=== PATIENT | male | born 1965 | race Caucasian/White ===

== ENCOUNTER 2020-07-12 19:36 | Inpatient (IN) | payer OTHER ==
[~2020-07-12 19:36] MED LIST: Iopamidol-370 76% 500 ML 1 ML ONE
--- NOTE | 2020-07-12 20:09 | RAD ---
Exam: Chest one view HISTORY:Altered mental status Comparison: None FINDINGS: Cardiac silhouette: Normal Aorta: Unremarkable Pulmonary vessels: Normal Costophrenic angles: Clear LUNGS: Scattered interstitial opacities of the lung bases. Pneumothorax: None Osseous abnormalities: Possible remote posterior right sixth rib fracture. Right rib radiograph serie s may be beneficial. IMPRESSION: 1. Bibasilar interstitial opacities. Correlate for edema or infiltrate. Aspiration cannot be entirely excluded. 2. Right rib radiograph series to better evaluate the posterior right sixth rib.
--- NOTE | 2020-07-12 20:24 | CT ---
Exam: Head CT without contrast HISTORY: Dysarthria, ataxia and confusion. Altered mental status. Level 1 stroke COMPARISON: none FINDINGS: Hemorrhage: No intraparenchymal hemorrhage or extra-axial hematoma. Brain parenchyma: Cortical quigley-white matter differentiation is preserved. No mass effect or midline shift. Basilar cisterns are patent. Ventricular system: Ventricles and sulci are patent and symmetric. Calvarium: Intact. Sinuses and mastoid air cells: Adequate aeration. IMPRESSION: No acute intracranial process. Findings conveyed to Dr. Salazar 07/12/2020 8:21 PM Code CR
[2020-07-12 20:32] LABS: #Basophils 0.1 thou/uL (0.0-0.2); #Eosinphils 0.2 thou/uL (0.0-0.7); #Lymphocytes 1.7 thou/uL (1.20-3.40); #Monocytes 0.3 thou/uL (0.11-0.59); #Neutrophils 2.2 thou/uL (1.40-6.50); %Basophils 1.8 % (0.0-1.0); %Eosinophils 4.9 % (0.0-10.0); %Lymphocytes 37.3 % (21.0-51.0); %Monocytes 7.3 % (0.0-10.0); %Neutrophils 48.7 % (42.0-75.0); Hemoglobin 16.1 g/dL (14.0-18.0); Mean Corpuscular HGB CONC 33.1 g/dL (32.0-36.0); Mean Corpuscular Hemoglobin 33.4 pg (27.0-31.0); Mean Platelet Volume 7.6 fL (7.4-10.4); Platelet Count 260 thou/uL (130-400); RBC Distribution Width 11.6 % (11.5-14.5); White Blood Cell (WBC) Count 4.5 thou/uL (4.8-10.8)
--- NOTE | 2020-07-12 20:41 | CT ---
EXAM: CT ANGIOGRAM OF THE HEAD AND NECK INDICATION: Level 1 stroke. Dysarthria. Altered mental status. Alcohol consumption. COMPARISON: None TECHNIQUE: CT angiogram of the head and neck are performed in the axial plane. Three-dimensional refo rmatted images are submitted for interpretation. FINDINGS: CTA OF THE HEAD WITH AND WITHOUT CONTRAST: POSTCONTRAST CT OF BRAIN: Pathologic enhancement: No pathologic enhancement the brain. Postcontrast soft tissue neck CT: Aerodigestive tract:Aerodigestive tract is patent. No mucosal abnormality. Evaluation the oral cavity due to dental amalgam artifact. Sinuses: Adequate aeration. Orbits: Bilateral ocular lenses are appropriately located. Both globes are intact. Retrobulbar fat is preserved. Symmetric attenuation the optic nerves and ocular rectus muscles. Salivary glands:Fatty replacement of the parotid glands, symmetric. Symmetric attenuation of the subm andibular glands. Thyroid gland: Appropriate attenuation Lymph nodes: No evidence of lymphadenopathy by size criteria. Paraspinal muscles: Symmetric attenuation of the sternocleidomastoid muscles. Appropriate attenuation of the paraspinal muscles. Cervical spine:Vertebral body height is maintained. No fracture. Cervical fusion at C5-C6. Moderate t o severe degenerative disc disease at C3-C4, C4-C5 and C6-C7. There are varying degrees of central canal stenosis and foraminal narrowing due to degenerative change. Technique limits evaluation. Upper mediastinum and lung apices: Chronic changes of the lung parenchyma. CTA OF THE NECK WITH CONTRAST: Aorta: Appropriate enhancement and luminal diameter of the visualized aorta Right carotid artery: Appropriate enhancement and luminal diameter of the origin the right carotid ar suhail, innominate artery, common carotid artery, carotid bifurcation and internal carotid artery. No significant stenosis based upon NASCET criteria. Left carotid: Appropriate enhancement and luminal diameter the origin of the carotid artery, common c arotid artery, carotid bifurcation and internal carotid artery. No significant stenosis based upon NASCET criteria Subclavian arteries:Symmetric and patent Vertebral arteries:Patent throughout their course in the neck. Vertebral arteries are codominant. CTA OF THE BRAIN: Intracranial internal carotid arteries:Appropriate enhancement and luminal diameter Anterior circulation: Appropriate enhancement and luminal diameter of the A1 segments, A2 segments, M 1 segments and proximal MCA branches. No occlusion or high-grade stenosis. No aneurysm. Intracranial vertebral arteries: Patent. Posterior circulation: Both vertebral arteries supply normal caliber basilar artery. Left P1 segment has appropriate enhancement and luminal diameter. Right CAR SHAKEOUT OPERATOR has a origin. Appropriate enhancement and luminal diameter. IMPRESSION: 1. No hemodynamically significant stenosis, occlusion or aneurysmal formation. Results of study discussed with Dr. Salazar 07/12/2020 at 8:38 PM Code CR
[2020-07-12 20:50] LABS: Acetaminophen Less than 6.0 mcg/mL (10.0-30.0); Alcohol 182 mg/dL (Less than 10); Salicylate Less than 8.0 mg/dL (15.0-30.0)
[2020-07-12 20:51] LABS: INR-International Normal Ratio 0.9; PTT 24.7 sec (22.9-36.1); Prothrombin Time 12.1 sec (12.0-14.7)
--- NOTE | 2020-07-12 21:18 | CT ---
Exam: Head CT without contrast HISTORY: Worsening symptoms. Uncontrolled movement COMPARISON: 07/12/2020 8:18 PM FINDINGS: Hemorrhage: No intraparenchymal hemorrhage or extra-axial hematoma. Brain parenchyma: Cortical quigley-white matter differentiation is preserved. No mass effect or midline shift. Basilar cisterns are patent. Ventricular system: Ventricles and sulci are patent and symmetric. Calvarium: Intact. Sinuses and mastoid air cells: Adequate aeration. Additional findings: Residual intra-arterial and dural venous sinus contrast is noted IMPRESSION: 1. No acute intracranial process. 2. No significant interval change.
[2020-07-12] MEDS ORDERED: Lorazepam 2 MG/ML VIAL ONE (21:21)
[2020-07-12 21:57] LABS: ALT (SGPT) 31 U/L (8-55); AST (SGOT) 24 U/L (5-34); Albumin 4.4 g/dL (3.5-5.0); Alkaline Phosphatase 42 U/L (40-110); Anion Gap 17 mmol/L (10-20); BUN (Urea Nitrogen) 12 mg/dL (8.4-25.7); Bilirubin, Total 1.5 mg/dL (0.2-1.2); Calc. Creatinine Clearance 0 mL/min (70-130); Calcium 9.1 mg/dL (7.8-10.44); Carbon Dioxide 23 mmol/L (22-29); Chloride 106 mmol/L (98-107); Globulin 2.7 g/dL (2.4-3.5); Glucose 104 mg/dL (70-105); Lipase 30 U/L (8-78); Potassium 3.9 mmol/L (3.5-5.1); Protein, Total 7.1 g/dL (6.0-8.3); Sodium 142 mmol/L (136-145)
[2020-07-12] MEDS ORDERED: Multivitamins, Adult 10 ML, Thiamine HCl 100 MG, Folic Acid 1 MG in Dextrose 5 %-0.45 %... IV SCH (22:00)
[2020-07-12] MEDS ORDERED: Thiamine HCl 200 MG/2 ML VIAL SLOW IVP SCH (22:30)
[2020-07-12] MEDS ORDERED: Folic Acid 1 MG TAB PO SCH (22:30)
[2020-07-12] MEDS ORDERED: Sodium Chloride 0.9% 1,000 ML IV SCH (22:30)
[2020-07-12] MEDS ORDERED: Dextrose 5 %-0.45 % NaCl 1,000 ML IV SCH (23:00)
[2020-07-12] MEDS ORDERED: cloNIDine 0.1 MG TAB PO PRN (23:34)
[2020-07-12] MEDS ORDERED: HYDROcodone/Acetaminophen 5/325 mg Tablet PO PRN (23:34)
[2020-07-12] MEDS ORDERED: Guaifenesin DM 100-10/5 ML UDCUP PO PRN (23:34)
[2020-07-12] MEDS ORDERED: Labetalol HCl 100 MG/20 ML VIAL SLOW IVP PRN ×2 (23:34→23:35)
[2020-07-12] MEDS ORDERED: Ondansetron PF 4 MG/2 ML Vial IVP PRN (23:34)
[2020-07-12] MEDS ORDERED: Promethazine HCl 12.5 MG in Sodium Chloride 0.9% 50 ML IVPB PRN (23:34)
[2020-07-12] MEDS ORDERED: Docusate 100 MG CAP PO PRN (23:35)
[2020-07-12] MEDS ORDERED: niCARdipine 25 MG in Sodium Chloride 0.9% 250 ML 250 ML IVPB PRN (23:35)
[2020-07-12] MEDS ORDERED: hydrALAZINE 20 MG/ML VIAL SLOW IVP PRN (23:35)
[2020-07-12] MEDS ORDERED: Communication Order-Pharmacy FS SCH (23:35)
--- NOTE | 2020-07-12 23:39 | PDOC.HHP ---
Hospitalist HPI - History of Present Illness Ataxia, altered mental status History of Present Illness: Patient is a 55 year old male with PMH hypertension, HLD, hypothyroidism who presents to ED for ataxia and altered mental status. called EMS when she got home from work due to patinet "not acting right," apparantly he drank a whole botle of vodka and was off balance and stumbling. He was altered and ataxic, speech was slurred, in ED, tbili 1.5, CT head with no acute findings. CTA head and neck did not show occlusion, stenosis or other acute findings. Patient given tPA on concern ataxia and expressive with significant improvement in symptoms afterward, patient to be admitted to CCU for monitoring after tPA. He denies ever having withdrawl symptoms fom alcohol, his alcohol level was 180 drawn in ED. had retention of 1000cc of fluid in bladder after tPA and high risk mason catheter had to be placed, I am not aware of any issues from bleeding after mason was odered Hospitalist ROS - Review of Systems Constitutional: reports: weakness, malaise. denies: fever, chills, sweats, other Eyes: denies: pain, vision change, conjunctivae inflammation, eyelid inflammation, redness, other ENT: denies: ear pain, ear discharge, nose pain, nose discharge, nose congestion, mouth pain, mouth swelling, throat pain, throat swelling, other Respiratory: denies: cough, dry, shortness of breath, hemoptysis, SOB with excertion, pleuritic pain, sputum, wheezing, other Cardiovascular: denies: chest pain, palpitations, orthopnea, paroxysmal noc. dyspnea, edema, light headedness, other Gastrointestinal: denies: nausea, vomiting, abdominal pain, diarrhea, constipation, melena, hematochezia, other Genitourinary: denies: dysuria, frequency, incontinence, hematuria, retention, other Musculoskeletal: denies: neck pain, shoulder pain, arm pain, back pain, hand pain, leg pain, foot pain, other Skin: denies: rash, lesions, kai, bruising, other Neurological: reports: incoordination, change in speech, confusion. denies: weakness, numbness, seizures, other All other systems reviewed; all pertinent +/- noted in HPI/Subj - Medication Medications: Euthyrox Sun Jul 12, 2020 21:14 ADRIANA Conway Lee tablet : Strength - 88 mcg : ORAL Patient Dose: 1 tab(s) Oral once a day (in the morning). meloxicam MonJul 12, 2020 21:14 ADRIANA Conway Lee tablet : Strength - 15 mg : ORAL Patient Dose: 1 tab(s) Oral once a day (in the morning). atorvastatin MonJul 12, 2020 21:15 ADRIANA Conway Lee tablet : Strength - 10 mg : ORAL Patient Dose: 1 tab(s) Oral once a day (in the morning). Hospitalist History - Past Medical History Other Medical History: hypertension, HLD, hypothyroidism - Past Surgical History Other Surgical History: back surgery - Family History Family History: reports: no pertinent history - Social History Alcohol: reports: Occassional Drugs: reports: none - Exam General Appearance: NAD, awake alert Eye: PERRL, anicteric sclera ENT: normocephalic atraumatic, no oropharyngeal lesions, moist mucosa Neck: supple, symmetric, no JVD, no thyromegaly, no lymphadenopathy, no carotid bruit Heart: RRR, no murmur, no gallops, no rubs, normal peripheral pulses Respiratory: CTAB, no wheezes, no rales, no ronchi, normal chest expansion, no tachypnea, normal percussion Gastrointestinal: soft, non-tender, non-distended, normal bowel sounds, no palpable masses, no hepatomegaly, no splenomegaly, no bruit Extremities: no cyanosis, no clubbing, no edema Skin: normal turgor, no lesions, no rashes Neurological: cranial nerve grossly intact, normal sensation to touch, no weakness, no focal deficits, no new deficit Musculoskeletal: normal tone, normal strength, no muscle wasting Psychiatric: normal affect, normal behavior, A&O x 3 Hospitalist Results - Labs Result Diagrams: 07/12/20 20:21 07/12/20 20: Lab results: WBC 4.5 thou/uL (4.8-10.8) L 07/12/20 20: Hgb 16.1 g/dL (14.0-18.0) 07/12/20 20: Hct 48.4 % (42.0-52.0) 07/12/20 20: MCV 101.0 fL (78.0-98.0) H 07/12/20 20:21 Plt Count 260 thou/uL (130-400) 07/12/20 20:21 Neutrophils % 48.7 % (42.0-75.0) 07/12/20 20:21 Sodium 142 mmol/L (136-145) 07/12/20 20:21 Potassium 3.9 mmol/L (3.5-5.1) 07/12/20 20:21 Chloride 106 mmol/L (98-107) 07/12/20 20:21 Carbon Dioxide 23 mmol/L (22-29) 07/12/20 20:21 BUN 12 mg/dL (8.4-25.7) 07/12/20 20:21 Creatinine 1.08 mg/dL (0.7-1.3) 07/12/20 20:21 Glucose 104 mg/dL (70-105) 07/12/20 20:21 Calcium 9.1 mg/dL (7.8-10.44) 07/12/20 20:21 Total Bilirubin 1.5 mg/dL (0.2-1.2) H 07/12/20 20:21 AST 24 U/L (5-34) 07/12/20 20:21 ALT 31 U/L (8-55) 07/12/20 20:21 Alkaline Phosphatase 42 U/L (40-110) 07/12/20 20:21 Ammonia 24 umol/L (18-72) 07/12/20 20:21 Troponin I Less than 0.010 ng/mL (< 0.028) 07/12/20 20:21 Serum Total Protein 7.1 g/dL (6.0-8.3) 07/12/20 20:21 Albumin 4.4 g/dL (3.5-5.0) 07/12/20 20:21 Lipase 30 U/L (8-78) 07/12/20 20:21 Additional comment: VITAL SIGNS Sun Jul 12, 2020 21:00 ADRIANA Conway, Chris BP: 156/103 Pulse: 95 Resp: 16 Pain: 0 O2 sat: 98 on (Room Air) Time: 07/12/2020 21:00. Hospitalist H&P A/P - Plan Plan: Patient is a 55 year old male with PMH hypertension, HLD, hypothyroidism who presents to ED for ataxia, alcohol intoxication and altered mental status, given tPA on concern for stroke. # ischemic stroke - apparantly he drank a whole botle of vodka and was off balance and stumbling. He was altered and ataxic, speech was slurred, in ED, tbili 1.5, CT head with no acute findings. CTA head and neck did not show occlusion, stenosis or other acute findings. Patient given tPA on concern ataxia and expressive due to stroke and patinet had significant improvement in symptoms afterward apparantly, patient to be admitted to CCU for monitoring after tPA. - admit to CCU - post-pacu order set - avoid lab draws, invasive tests as possible for 24 hours, asa/lovenox/statin to start once safe afer tpa - neurocecks, consul # alcohol abuse - patient denies ever having withdrawl symptoms fom alcohol, his alcohol level was 180 drawn in ED. had retention of 1000cc of fluid in bladder after tPA and high risk mason catheter had to be placed, I am not aware of any issues from bleeding after mason was odered, it was placed more than 30 minutes after pA - banana bag and vitamins/minerals odered # acute urinary retention - 1000cc PVR in blader, straight ca
[2020-07-12] MEDS ORDERED: Electrolyte Replacement Protocol 1 EACH FS PRN (23:45)
[2020-07-13 00:17] LABS: SARS-CoV-2 NAA Rapid Test Not Detected (NotDetected)
[2020-07-13 01:14] VITALS: BMI 26.7
[2020-07-13 01:42] LABS: Bacteria/HPF None Seen HPF (None Seen); Bilirubin Negative (Negative); Blood, Urine Negative (Negative); Clarity Clear (Clear); Glucose, Urine (Dipstick) Normal (Negative); Ketone, Urine Negative (Negative); Leukocyte Negative Leu/uL (Negative); Nitrite Negative (Negative); Protein, Urine (Dipstick) Negative (Neg-Trace); RBC/HPF None Seen HPF (0-3); Specific Gravity, Urine 1.031 (1.002-1.036); Squamous Epithelial None Seen HPF (0-3); Urobilinogen Normal mg/dL (Less than 2); WBC/HPF 0-3 HPF (0-3)
[2020-07-13 01:55] LABS: Urine Culture Reflex No No
[2020-07-13 01:56] LABS: Amphetamine Not Detected (NotDetected); Barbiturates Screen Not Detected (NotDetected); Benzodiazepine Screen Not Detected (NotDetected); Cocaine Metabolite Screen Not Detected (NotDetected); Medtox Control Line Valid? VALID (VALID); Medtox Reader # READER 4; Methadone Not Detected (NotDetected); Methamphetamine Not Detected (NotDetected); Opiate Screen Not Detected (NotDetected); Oxycodone Screen Not Detected (NotDetected); Phencyclidine (PCP) Not Detected (NotDetected); THC/Cannabinoid Screen Not Detected (NotDetected); Tricyclic Screen Not Detected (NotDetected)
[2020-07-13] MEDS: Sodium Chloride 0.9% 1,000 ML IV SCH ×2 (05:15→07:51)
[2020-07-13] MEDS: Folic Acid 1 MG TAB PO SCH (07:51)
[2020-07-13] MEDS: Famotidine 20 MG TAB PO SCH ×2 (07:51→20:57)
[2020-07-13] MEDS: Thiamine 100 MG TAB PO SCH (07:51)
[2020-07-13] MEDS: Multivitamin W/ Minerals 1 TAB PO SCH (07:52)
[2020-07-13] MEDS: Acetaminophen 325 MG TAB PO PRN (07:53)
--- NOTE | 2020-07-13 08:10 | CT ---
PRELIMINARY REPORT/[facility]/EMERGENCY AFTER HOURS PROCEDURE EXAM: CT Head Without Intravenous Contrast. CLINICAL HISTORY: POST TPA TECHNIQUE: Axial computed tomography images of the head/brain without intravenous contrast. 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 No mass lesion. No CT evidence for acute territorial infarct. N o midline shift or extra-axial collection. VENTRICLES: No hydrocephalus. ORBITS: The orbits are unremarkable. SINUSES AND MASTOIDS: The paranasal sinuses and mastoid air cells are clear. SOFT TISSUES: No significant facial or scalp soft tissue swelling evident. No radiopaque foreign body is seen. BONES: No acute skull fracture. IMPRESSION: No acute intracranial abnormality. ELECTRONICALLY SIGNED BY: Ariel Rodriguez MD Jul 13, 2020 6:12:20 AM GEAR CODING MACHINE OPERATOR This report is intended for review by the ordering physician only, in accordance of law. If you recei ve this report in error, please call [facility] at [phone]. FINAL REPORT Final report by Dr. Borja Emergency after-hours study CT BRAIN NONCONTRAST: DATE: 07/13/2020 5:45 AM HISTORY: 55-year-old male with acute stroke symptoms: Dysarthria. Status post thrombolytic therapy with TPA. C oncern for acute intracranial hemorrhage. FINDINGS: There is no evidence of acute intra-axial or extra-axial hemorrhage. There is no midline shift or any other mass effect. There is no extra-axial fluid collection. The ventricles are normal in size and configuration. The tympanomastoid cavities, and the upper portions of the paranasal sinuses included in these images, are grossly clear. Calvarium is intact. Agree with preliminary report by [facility]. IMPRESSION: Normal. Transcribed Date/Time: 07/13/2020 8:21 AM
--- NOTE | 2020-07-13 08:38 | MRI ---
MRI BRAIN WITHOUT CONTRAST: HISTORY: CVA, dysarthria, ataxia, confusion CORRELATION: CT scan from 07/13/2020. FINDINGS: No restricted diffusion is seen. The ventricular size is appropriate and the basilar cisterns are pat ent. No evidence of acute infarct, hemorrhage, midline shift or abnormal extra-axial fluid collections is seen. The visualized paranasal sinuses and mastoid air cells are well-aerated. IMPRESSION: No evidence of acute intracranial process.
[2020-07-13] MEDS ORDERED: FLU VACC QS2020-21(6MOS UP)/PF 60 MCG/0.5 ML SYRINGE IM ONE (09:00)
--- NOTE | 2020-07-13 10:06 | CON ---
DATE OF CONSULTATION: HISTORY OF PRESENT ILLNESS: Felipe Del Cid is a 55-year-old gentleman with a history of hypertension, hypothyroidism, high cholesterol, sees a local clinic here. His came back from work. He, apparently, drank 4 glasses of vodka. He was unsteady, diaphoretic. EMS was called in. He is dysarthric. Gait was unsteady. ER did a stroke protocol with slurred speech. CT head, CT angio negative. He was given tPA for stroke protocol. He says he drinks 3 to 4 vodkas from time to time. Denies being excessively drunk. His plasma alcohol level was 182 when he arrived. Drug screen was negative. PAST MEDICAL HISTORY: Otherwise, hypertension, high cholesterol, hypothyroidism. PREVIOUS SURGERIES: Multiple, he has had previous back surgery done. HOME MEDICATIONS: Unknown at this stage. He is presently gettin. Catapres. 2. Hydralazine. 3. Nicardipine. REVIEW OF SYSTEMS: Otherwise, 10-point negative. PHYSICAL EXAMINATION: GENERAL: Awake, alert, responsive. VITAL SIGNS: Temperature 98, room air, blood pressure 135/89, pulse 104, respirations 20. CHEST: No wheezing. No crackles. CARDIAC: Normal S1, S2. No gallops. ABDOMEN: Soft. NEUROLOGIC: He is awake, alert, responsive, very appropriate. Grossly, neuro exam is normal. DIAGNOSTIC STUDIES: Chest x-ray is clear. ASSESSMENT AND PLAN: 1. Status post encephalopathy, slurred speech, felt to be stroke-like symptoms, received tPA. 2. Alcohol intake with alcohol level 182. 3. Coronavirus negative. 4. High cholesterol. 5. Hypothyroidism. Pulmonary barnes, when the patient is stable from neurological standpoint, he can be transferred out of the ICU. Pulmonary follow at a distance once he is in the ICU. Consultation note, 70 minutes, 50% direct patient care. Job ID: [id number]
--- NOTE | 2020-07-13 11:48 | PDOC.HOSPP ---
- Subjective Encounter Date: 07/13/20 Encounter Time: 09:00 Subjective: awake, oriented well, no c/o any weakness - Objective Vital Signs & Weight: Vital Signs (12 hours) Temp Pulse Ox 07/13/20 08:06 99 07/13/20 08:00 98.4 F 07/13/20 04:00 98.4 F 07/13/20 01:00 97.8 F 98 Weight Weight 175 lb 14.862 oz Most Recent Monitor Data Heart Rate from ECG 93 NIBP 152/83 NIBP BP-Mean 106 Respiration from ECG 16 SpO2 99 I&O: 07/12/20 07/13/20 07/14/20 06:59 06:59 06:59 Intake Total 1180 300 Output Total 1285 175 Balance -105 125 Result Diagrams: 07/12/20 20:21 07/12/20 20:21 Additional Labs: Accuchecks 07/12/20 20:16 POC Glucose 105 H Hospitalist ROS - Medication Medications: Active Medications Generic Name Dose Route Start Last Admin Trade Name Freq PRN Reason Stop Dose Admin Acetaminophen 650 mg 07/12/20 23:34 07/13/20 07:53 Acetaminophen 325 Mg Tab PO 650 mg Q4H PRN Administration Headache/Fever/Mild Pain (1-3) Famotidine 20 mg 07/13/20 09:00 07/13/20 07:51 Famotidine 20 Mg Tab PO 20 mg BID ERIBERTO Administration Folic Acid 1 mg 07/13/20 09:00 07/13/20 07:51 Folic Acid 1 Mg Tab PO 1 mg DAILY ERIBERTO Administration Sodium Chloride 1,000 mls @ 125 mls/hr 07/13/20 06:15 07/13/20 07:51 Normal Saline 0.9% IV 1,000 mls .Q8H ERIBERTO Administration Iron/Minerals/Multivitamins 1 tab 07/13/20 09:00 07/13/20 07:52 Multivitamin W/ Minerals 1 Tab PO 1 tab DAILY ERIBERTO Administration Miscellaneous Information 1 each 07/12/20 23:35 07/13/20 05:14 Communication Order-Pharmacy FS 07/13/20 22:00 1 each NOW ERIBERTO Administration Thiamine HCl 100 mg 07/13/20 09:00 07/13/20 07:51 Thiamine 100 Mg Tab PO 100 mg DAILY ERIBERTO Administration - Exam General Appearance: awake alert Eye: PERRL, anicteric sclera ENT: no oropharyngeal lesions, moist mucosa Neck: supple, no JVD Heart: RRR, no murmur Respiratory: no wheezes, no rales Gastrointestinal: soft, non-tender, non-distended, normal bowel sounds Extremities: no cyanosis, no edema Neurological: cranial nerve grossly intact, no focal deficits Psychiatric: normal affect, A&O x 3 Hosp A/P (1) Alcohol intoxication Status: Resolved (2) s/p tpa Status: Acute (3) CVA (cerebral vascular accident) Code(s): I63.9 - CEREBRAL INFARCTION, UNSPECIFIED Status: Suspected (4) HTN (hypertension) Code(s): I10 - ESSENTIAL (PRIMARY) HYPERTENSION Status: Chronic Qualifiers: Hypertension type: essential hypertension Qualified Code(s): I10 - Essential (primary) hypertension (5) Hypothyroidism Code(s): E03.9 - HYPOTHYROIDISM, UNSPECIFIED Status: Chronic Qualifiers: Hypothyroidism type: unspecified Qualified Code(s): E03.9 - Hypothyroidism, unspecified (6) Urinary retention Code(s): R33.9 - RETENTION OF URINE, UNSPECIFIED Status: Acute - Plan pt was initially suspected to have cva and was given tPA, likely his symptoms were due to alc intoxication with alc levels of 182mg/dl hemo/neurostable MRI, CT brain x2 are -ve tx to medical floor, dc plan in am or this evening if stable continue flomax, banana bag or thiamine, folic acid with mvi oral diet asp, lipitor
[2020-07-13] MEDS ORDERED: Fentanyl 100 MCG/2 ML VIAL ONE (12:14)
[2020-07-13] MEDS ORDERED: Tamsulosin HCl 0.4 MG CAP PO SCH (21:00)
[2020-07-13] MEDS ORDERED: Atorvastatin Calcium 40 MG TAB PO SCH (21:00)
[2020-07-13 23:26] LABS: Cardiac Risk 3.4 (Less than 4.5)
[2020-07-14 04:22] LABS: #Basophils 0.1 thou/uL (0.0-0.2); #Eosinphils 0.3 thou/uL (0.0-0.7); #Lymphocytes 2.9 thou/uL (1.20-3.40); #Monocytes 0.7 thou/uL (0.11-0.59); #Neutrophils 5.1 thou/uL (1.40-6.50); %Basophils 0.9 % (0.0-1.0); %Eosinophils 3.5 % (0.0-10.0); %Lymphocytes 31.4 % (21.0-51.0); %Monocytes 7.9 % (0.0-10.0); %Neutrophils 56.4 % (42.0-75.0); Hemoglobin 15.3 g/dL (14.0-18.0); Mean Corpuscular HGB CONC 33.1 g/dL (32.0-36.0); Mean Corpuscular Volume 99.6 fL (78.0-98.0); Mean Platelet Volume 7.7 fL (7.4-10.4); Platelet Count 256 thou/uL (130-400); RBC Distribution Width 11.8 % (11.5-14.5); Red Blood Cell (RBC) Count 4.64 mill/uL (4.70-6.10); White Blood Cell (WBC) Count 9.1 thou/uL (4.8-10.8)
[2020-07-14 04:50] LABS: ALT (SGPT) 23 U/L (8-55); AST (SGOT) 18 U/L (5-34); Albumin 3.9 g/dL (3.5-5.0); Alkaline Phosphatase 45 U/L (40-110); Anion Gap 13 mmol/L (10-20); BUN (Urea Nitrogen) 12 mg/dL (8.4-25.7); Calc. Creatinine Clearance 95 mL/min (70-130); Calcium 8.2 mg/dL (7.8-10.44); Carbon Dioxide 22 mmol/L (22-29); Chloride 108 mmol/L (98-107); Globulin 2.5 g/dL (2.4-3.5); Glucose 113 mg/dL (70-105); Potassium 4.1 mmol/L (3.5-5.1); Protein, Total 6.4 g/dL (6.0-8.3); Sodium 139 mmol/L (136-145)
[2020-07-14 08:20] VITALS: BP 134/75; TEMP 98.6
[2020-07-14] MEDS: Thiamine 100 MG TAB PO SCH (08:57)
[2020-07-14] MEDS: Folic Acid 1 MG TAB PO SCH (08:57)
[2020-07-14] MEDS: Famotidine 20 MG TAB PO SCH (08:57)
[2020-07-14] MEDS: Multivitamin W/ Minerals 1 TAB PO SCH (08:57)
[2020-07-14] MEDS ORDERED: Aspirin 325 mg Enteric Coated Tablet PO SCH (09:00)
[2020-07-14] MEDS ORDERED: Enoxaparin Sodium 40 MG/0.4 ML SYRINGE SC SCH (09:00)
[2020-07-14] MEDS: Acetaminophen 325 MG TAB PO PRN (09:01)
--- NOTE | 2020-07-14 11:48 | CT ---
EXAM: CT ANGIOGRAM OF THE HEAD AND NECK INDICATION: Level 1 stroke. Dysarthria. Altered mental status. Alcohol consumption. COMPARISON: None TECHNIQUE: CT angiogram of the head and neck are performed in the axial plane. Three-dimensional refo rmatted images are submitted for interpretation. FINDINGS: CTA OF THE HEAD WITH AND WITHOUT CONTRAST: POSTCONTRAST CT OF BRAIN: Pathologic enhancement: No pathologic enhancement the brain. Postcontrast soft tissue neck CT: Aerodigestive tract:Aerodigestive tract is patent. No mucosal abnormality. Evaluation the oral cavity due to dental amalgam artifact. Sinuses: Adequate aeration. Orbits: Bilateral ocular lenses are appropriately located. Both globes are intact. Retrobulbar fat is preserved. Symmetric attenuation the optic nerves and ocular rectus muscles. Salivary glands:Fatty replacement of the parotid glands, symmetric. Symmetric attenuation of the subm andibular glands. Thyroid gland: Appropriate attenuation Lymph nodes: No evidence of lymphadenopathy by size criteria. Paraspinal muscles: Symmetric attenuation of the sternocleidomastoid muscles. Appropriate attenuation of the paraspinal muscles. Cervical spine:Vertebral body height is maintained. No fracture. Cervical fusion at C5-C6. Moderate t o severe degenerative disc disease at C3-C4, C4-C5 and C6-C7. There are varying degrees of central canal stenosis and foraminal narrowing due to degenerative change. Technique limits evaluation. Upper mediastinum and lung apices: Chronic changes of the lung parenchyma. CTA OF THE NECK WITH CONTRAST: Aorta: Appropriate enhancement and luminal diameter of the visualized aorta Right carotid artery: Appropriate enhancement and luminal diameter of the origin the right carotid ar suhail, innominate artery, common carotid artery, carotid bifurcation and internal carotid artery. No significant stenosis based upon NASCET criteria. Left carotid: Appropriate enhancement and luminal diameter the origin of the carotid artery, common c arotid artery, carotid bifurcation and internal carotid artery. No significant stenosis based upon NASCET criteria Subclavian arteries:Symmetric and patent Vertebral arteries:Patent throughout their course in the neck. Vertebral arteries are codominant. CTA OF THE BRAIN: Intracranial internal carotid arteries:Appropriate enhancement and luminal diameter Anterior circulation: Appropriate enhancement and luminal diameter of the A1 segments, A2 segments, M 1 segments and proximal MCA branches. No occlusion or high-grade stenosis. No aneurysm. Intracranial vertebral arteries: Patent. Posterior circulation: Both vertebral arteries supply normal caliber basilar artery. Left P1 segment has appropriate enhancement and luminal diameter. Right CLIENT EXPERIENCE MANAGER has a origin. Appropriate enhancement and luminal diameter. IMPRESSION: 1. No hemodynamically significant stenosis, occlusion or aneurysmal formation. Results of study discussed with Dr. Salazar 07/12/2020 at 8:38 PM Code CR Transcribed Date/Time: 07/14/2020 11:48 AM
--- NOTE | 2020-07-14 16:47 | DIS ---
DATE OF ADMISSION: 07/12/2020 DATE OF DISCHARGE: 07/14/2020 DISCHARGE DISPOSITION: Home. PRIMARY DISCHARGE DIAGNOSES: Alcohol intoxication, status post tPA for initial suspicion for stroke, which is ruled out, hypertension, hypothyroidism, urinary retention. PROCEDURES DONE DURING HOSPITALIZATION: MRI brain without contrast done showed no acute intracranial process. CT angio of the head and neck done showed no hemodynamically significant stenosis or occlusion or aneurysm formation. CT brain without contrast x2 showed no acute intracranial process. These were done 24 hours apart as part of tPA protocol. H and H 15 and 46, platelet count 256, MCV is 99. BUN 12, creatinine 0.9. LDL 78, total cholesterol 149, triglycerides 133. Troponin x1 negative. Ammonia levels 24. LFTs were within normal limits. Total bilirubin 1.5. Lipase is 30. Plasma alcohol level 182 mg/dL. Urine drug screen was negative. COVID-19 PCR was negative on 07/12/2020. DISCHARGE MEDICATIONS: 1. Aspirin 81 mg p.o. daily. 2. Lipitor 40 mg p.o. at bedtime. 3. Flomax 0.4 mg p.o. at bedtime. 4. Folic acid 1 mg p.o. daily. 5. Thiamine 100 mg p.o. daily. 6. Norvasc 10 mg p.o. daily. ALLERGIES: NO KNOWN DRUG ALLERGIES. DISCHARGE PLAN: The patient to follow up with primary care physician. BRIEF COURSE DURING HOSPITALIZATION: The patient initially was brought by EMS after they were called in for altered mental state and ataxia. He was apparently not acting right. He drank three mixed drinks of vodka with soda. His speech was slurred. Per ED notes on arrival by Dr. Amaya, the reported that the patient was off balance and stumbled on to a table, then became diaphoretic. He had been drinking vodka at home. In view of this history and him being in the stroke window for tPA, he was administered tPA in the ER. The patient also had urinary retention and had a Mccarthy catheter placed. Mr. Del Cid has had issues with urinary stream and retention and has been taking herbal medications. He has not seen a urologist for the same. He was admitted to ICU post tPA protocol. The patient has had three CT scans of the brain without contrast as part of tPA protocol. None of which showed any stroke. He had CT angio of brain and neck done, which did not reveal any acute abnormality. MRI brain without contrast showed no acute infarct or bleed. He remained hemodynamically stable. He is ambulating and eating well prior to discharge. His Mccarthy catheter will be removed and the patient will be allowed to void at least 2 times prior to discharge. He is hemodynamically stable and has been advised to follow up with a urologist in the outpatient setting. He has been given a prescription for Flomax. He was also counseled against drinking heavy alcohol. I have given complete updates to the patient and his . Please note, I have seen and examined the patient on the day of discharge. Job ID: [id number]
--- NOTE | 2020-07-17 06:19 | PQF ---
CLINICAL DOCUMENTATION CLARIFICATION FORM: Dear : Arcelia Prabhakar Date / Time: 07/17/20618 Please exercise your independent, professional judgment in responding to the clarification form. Clinical indicators are provided on the bottom of this form for your review In your clinical opinion based on clinical findings below, can you please specify the type of Encephalopathy if: Please check appropriate box(es): [ ] Metabolic [ x ] Toxic [ ] Unspecified [ ] Other (please specify) [ ] Unable to determine Physician Signature: Date/Time: For continuity of documentation, please document condition throughout progress notes and discharge summary. Thank You. To be completed by CDI/Coding staff for physician review: Present Clinical Indicators - Signs / Symptoms / Labs Results and Location in Medical Record [X] Plasma Alcohol 182, Detected Salicylates and Acetaminophen Toxicology 07/12 [X] BP 156/103, Pulse 95, resp 16, Temp 98.3 Vital signs 07/12 [X] Presented with Ataxia and altered mental status H&P p1 07/12 Dr Duran [X] Alcohol intoxication H&P p4 07/12 Dr Duran [X] s/p Encephalopathy, slurred speech, felt to be stroke-like symptoms Consult Dr Bone 07/13 Present Risk Factors Results and Location in Medical Record [X] HTN H&P p1 07/12 Dr Duran [X] Hypothyroidism H&P p1 07/12 Dr Duran [X] Alcohol abuse H&P p4 07/12 Dr Duran Present Treatments Results and Location in Medical Record [X] IVF NS 1L OCT 16 [X] IV Ativan 2 mg OCT 16 [X] IV Activase OCT 16 [X] Admit to CCU H&P p1 07/12 Dr Duran [X] Neuro check 07/12 CDS/Sanitation Lead Signature: Mary [place] Phone #: [phone] Date/Time: 07/17/202019 This is a permanent part of the Medical Record [facility]
--- NOTE | 2020-07-21 20:35 | EKG ---
Test Reason : C/O CHEST DISCOMFORT Blood Pressure : / mmHG Vent. Rate : 090 BPM Atrial Rate : 090 BPM P-R Int : 124 ms QRS Dur : 082 ms QT Int : 338 ms P-R-T Axes : 009 034 023 degrees QTc Int : 413 ms Normal sinus rhythm Normal ECG No previous ECGs available Confirmed by DR. Dwain RAZO ([id number]) on 07/21/2020 8:34:39 PM Referred By: KITTY Confirmed By:DR. Dwain RAZO
== END 2020-07-14 11:15 | disposition home or self-care (01) | DRG 896 ==
LOC: ERS 19:36 → CCU 22:44 → UNDOADMIN 22:44 → ONC 07-13 22:08
PROVIDERS: ADMIT Internal Medicine; ATTEND Internal Medicine
PROC: HZ2ZZZZ Detoxification Services for Substance Abuse Treatment (ICD-10-PCS; principal; 2020-07-12)
PROC: 3E03317 Introduction of Other Thrombolytic into Peripheral Vein, Percutaneous Approach (ICD-10-PCS; 2020-07-12)
PROC: 0T9B70Z Drainage of Bladder with Drainage Device, Via Natural or Artificial Opening (ICD-10-PCS; 2020-07-12)
DX: F10.129 Alcohol abuse with intoxication, unspecified (principal); G92 Toxic encephalopathy; Z20.828 Contact with and (suspected) exposure to other viral communicable diseases; I10 Essential (primary) hypertension; E03.9 Hypothyroidism, unspecified; R33.9 Retention of urine, unspecified; Y90.6 Blood alcohol level of 120-199 mg/100 ml; E78.5 Hyperlipidemia, unspecified; E78.00 Pure hypercholesterolemia, unspecified; Z79.899 Other long term (current) drug therapy; Z28.21 Immunization not carried out because of patient refusal
CPT/HCPCS: 36415; 36416; 70450; 70496; 70498; 70551; 71045; 80053; 80061; 80306; 80307; 81001; 82140; 83690; 84443; 84484; 85025; 85610; 85730; 93005; 93010; 94760; 96365; 96367; 96375; 96376; J1650; J2060; J2997; J3010; J3411; J7042; Q9967; U0002

== ENCOUNTER 2021-11-29 09:11 | Outpatient (CLI) | payer BC | END 2021-11-29 09:12 | disposition home or self-care (01) | LOC: BICRAD 09:11 | PROVIDERS: ATTEND Family Medicine | DX: M25.551 Pain in right hip (principal) ==

== ENCOUNTER 2021-12-21 12:29 | Outpatient (CLI) | payer BC | END 2021-12-21 12:30 | disposition home or self-care (01) | LOC: EEG 12:29 | PROVIDERS: ATTEND Family Medicine | DX: R55 Syncope and collapse (principal) | CPT/HCPCS: 95816; 95957 ==

== ENCOUNTER 2022-02-04 16:35 | Outpatient (CLI) | payer BC ==
[2022-02-04 17:42] LABS: #Basophils 0.1 10x3/uL (0.0-0.2); #Eosinphils 0.2 10x3/uL (0.0-0.5); #Monocytes 0.6 10x3/uL (0.0-1.1); #Neutrophils 2.6 10x3/uL (1.5-8.4); %Basophils 1.2 % (0.0-2.0); %Eosinophils 4.1 % (0.0-6.0); %Monocytes 9.3 % (0.0-10.0); %Neutrophils 44.1 % (40.0-75.0); Hemoglobin 14.7 g/dL (13.5-17.5); Mean Corpuscular HGB CONC 34.6 g/dL (32.0-36.0); Mean Corpuscular Hemoglobin 33.3 pg (27.0-33.0); Mean Corpuscular Volume 96.2 fl (81.2-95.1); Mean Platelet Volume 9.9 fl (7.4-10.4); Platelet Count 286 10x3/uL (150-450); RBC Distribution Width 12.6 % (11.5-14.5); Red Blood Cell (RBC) Count 4.42 10x6/uL (4.32-5.72); White Blood Cell (WBC) Count 5.9 10x3/uL (3.5-10.5)
[2022-02-04 18:27] LABS: Anion Gap 17 mmol/L (10-20); BUN (Urea Nitrogen) 22 mg/dL (8.4-25.7); Calc. Creatinine Clearance 0 mL/min (70-130); Carbon Dioxide 23 mmol/L (22-29); Chloride 106 mmol/L (98-107); Estimated GFR 76; Glucose 108 mg/dL (70-105); Potassium 4.2 mmol/L (3.5-5.1); Sodium 142 mmol/L (136-145)
== END 2022-02-04 16:36 | disposition home or self-care (01) ==
LOC: LABBT 16:35
PROVIDERS: ATTEND Surgery
DX: Z01.812 Encounter for preprocedural laboratory examination (principal); K40.90 Unilateral inguinal hernia, without obstruction or gangrene, not specified as recurrent; Z20.822 Contact with and (suspected) exposure to COVID-19
CPT/HCPCS: 80048; 85025; 87811; 93005; 93010

== ENCOUNTER 2022-02-08 07:57 | Day surgery (SDC) | payer BC ==
[2022-02-03 09:36] VITALS: BMI 25.0
[2022-02-08] MEDS ORDERED: fentaNYL Citrate/PF 100 MCG/2 ML SYRINGE ONE (10:00)
[2022-02-08] MEDS ORDERED: Lidocaine 1% w/Epinephrine 1:100K 20 ML VIAL ONE (10:01)
[2022-02-08] MEDS ORDERED: Bupivacaine 0.25% HCL 30 ML VIAL ONE (10:01)
[2022-02-08] MEDS ORDERED: Sodium Chloride 0.9% 100 ML ONE (10:09)
[2022-02-08] MEDS ORDERED: CEFAZOLIN 2 GM VIAL ONE (10:09)
[2022-02-08] MEDS ORDERED: PROPOFOL 200 MG/20 ML VIAL ONE (10:24)
[2022-02-08] MEDS ORDERED: Rocuronium Bromide 10 MG/ML (10ML VIAL) ONE (10:24)
[2022-02-08] MEDS ORDERED: Ondansetron PF 4 MG/2 ML Vial ONE (10:24)
[2022-02-08] MEDS ORDERED: Glycopyrrolate 0.2 MG/ML 5 ML SYRINGE ONE (10:24)
[2022-02-08] MEDS ORDERED: Lidocaine 1% PF 5 ML VIAL ONE (10:24)
[2022-02-08] MEDS ORDERED: Fentanyl 100 MCG/2 ML VIAL ONE (12:07)
== END 2022-02-08 14:10 | disposition home or self-care (01) ==
LOC: SDC 07:57
PROVIDERS: ATTEND Surgery
PROC: 8E0W4CZ Robotic Assisted Procedure of Trunk Region, Percutaneous Endoscopic Approach (ICD-10-PCS; principal; 2022-02-08)
PROC: 0YUA4JZ Supplement Bilateral Inguinal Region with Synthetic Substitute, Percutaneous Endoscopic Approach (ICD-10-PCS; principal; 2022-02-08)
DX: K40.20 Bilateral inguinal hernia, without obstruction or gangrene, not specified as recurrent (principal); E78.00 Pure hypercholesterolemia, unspecified; I25.10 Atherosclerotic heart disease of native coronary artery without angina pectoris; E03.9 Hypothyroidism, unspecified; N52.9 Male erectile dysfunction, unspecified; Z87.891 Personal history of nicotine dependence; Z79.02 Long term (current) use of antithrombotics/antiplatelets; Z79.1 Long term (current) use of non-steroidal anti-inflammatories (NSAID); Z79.82 Long term (current) use of aspirin; Z79.890 Hormone replacement therapy; Z79.899 Other long term (current) drug therapy; Z95.5 Presence of coronary angioplasty implant and graft
CPT/HCPCS: C1781; J0690; J2405; J2704; J2710; J3010; J3490; S0020

== ENCOUNTER 2022-02-08 19:29 | Emergency (ER) | payer BC | END 2022-02-08 21:42 | disposition home or self-care (01) | LOC: ERS 19:29 | DX: N99.89 Other postprocedural complications and disorders of genitourinary system (principal); R33.8 Other retention of urine | CPT/HCPCS: 51702 ==